=== PATIENT | male | born 1970 | race Caucasian/White ===

== ENCOUNTER 2019-08-29 10:32 | Inpatient (IN) | payer MEDICARE ==
[~2019-08-29] VITALS: Ht 182.4 cm; Wt 100.1 kg
[~2019-08-29 10:32] MED LIST: APIX5TAB PO; CARB400T PO
[2019-08-29 13:56] VITALS: BP 117/73
[2019-08-29] MEDS ORDERED: APIX5TAB PO (14:35)
[2019-08-29] MEDS ORDERED: CARB200T PO (14:35)
[2019-08-29] MEDS ORDERED: SODIUM CHLORIDE 0.9% 1,000 ML IV SCH (15:10)
[2019-08-29] MEDS ORDERED: hydrALAzine 20 MG/ML, 1ML IVPush PRN (15:30)
[2019-08-29] MEDS ORDERED: LABETALOL 5MG/ML, 20ML IVPush PRN (15:30)
[2019-08-29] MEDS ORDERED: PROMETHAZINE 25 MG/ML, 1ML IM PRN (15:30)
[2019-08-29] MEDS: METRONIDAZOLE PMX 500MG/100ML 100 ML IV SCH ×2 (16:42→22:30)
[2019-08-29 16:48] LABS: BASOPHILS # (AUTO) 0.06 x10^3/uL (0-0.1); BASOPHILS % (AUTO) 1 % (0-1); EOSINOPHILS % (AUTO) 0 % (1-7); LYMPHOCYTES # (AUTO) 1.59 x10^3/uL (1-3.4); LYMPHOCYTES % (AUTO) 20 % (22-44); MD NO; MEAN CORPUSCULAR HEMOGLOBIN 31.6 pg (27.5-34.5); MEAN CORPUSCULAR HGB CONC 33.1 g/dL (33.2-36.2); MEAN CORPUSCULAR VOLUME 95.3 fL (81-97); MEAN PLATELET VOLUME 7.8 fL (7.4-10.4); MONOCYTES # (AUTO) 0.51 x10^3/uL (0.2-0.8); MONOCYTES % (AUTO) 7 % (2-9); NEUTROPHILS # (AUTO) 5.75 x10^3/uL (1.8-6.8); NEUTROPHILS % (AUTO) 73 % (42-75); PLATELET COUNT 202 x10^3/uL (130-400); RED BLOOD COUNT 4.79 x10^6/uL (4.38-5.82); RED CELL DISTRIBUTION WIDTH 13.7 % (9.4-14.8)
[2019-08-29 16:57] LABS: INTERNATIONAL NORMALIZED RATIO 0.97 (0.93-1.1); PROTHROMBIN TIME 10.2 Seconds (9.6-11.5)
[2019-08-29 16:59] LABS: ALANINE AMINOTRANSFERASE 26 U/L (12-78); ALBUMIN 3.5 g/dL (3.4-5.0); ANION GAP 8 mmol/L (5-15); CHLORIDE 115 mmol/L (98-107)
[2019-08-29 17:02] LABS: ALKALINE PHOSPHATASE 170 U/L (45-117); BILIRUBIN,TOTAL 0.3 mg/dL (0.2-1.0); CREATININE 1.07 mg/dL (0.7-1.3); TOTAL PROTEIN 7.5 g/dL (6.4-8.2)
[2019-08-29] MEDS ORDERED: HEPARIN 25,000 UNITS/500ML PMX 500 ML ONE (17:15)
[2019-08-29] MEDS ORDERED: HEPARIN 5,000 UNITS/ML, 1ML ONE (17:15)
[2019-08-29] MEDS: HEPARIN 25,000 UNITS/500ML PMX 500 ML IV PRN (17:20)
[2019-08-29] MEDS: SODIUM CHLORIDE 0.45% 1,000 ML IV SCH (19:08)
[2019-08-29] MEDS: CEFTRIAXONE PMX 1GM/50ML 50 ML IV SCH (20:20)
[2019-08-29] MEDS: CARBAMAZEPINE 200 MG TABLET PO SCH (20:21)
[2019-08-29 20:52] VITALS: BP 112/69
[2019-08-29] MEDS ORDERED: HEPARIN 5,000 UNITS/ML, 1ML IV ONE (21:00)
[2019-08-29] MEDS ORDERED: HEPARIN 5,000 UNITS/ML, 1ML IV PRN (21:00)
[2019-08-30 02:46] VITALS: BP 105/66
[2019-08-30] MEDS: METRONIDAZOLE PMX 500MG/100ML 100 ML IV SCH ×4 (04:09→22:00)
[2019-08-30 05:48] LABS: BASOPHILS # (AUTO) 0.04 x10^3/uL (0-0.1); BASOPHILS % (AUTO) 1 % (0-1); EOSINOPHILS # (AUTO) 0.16 x10^3/uL (0-0.4); EOSINOPHILS % (AUTO) 3 % (1-7); LYMPHOCYTES # (AUTO) 2.64 x10^3/uL (1-3.4); LYMPHOCYTES % (AUTO) 43 % (22-44); MD NO; MEAN CORPUSCULAR HEMOGLOBIN 31.6 pg (27.5-34.5); MEAN CORPUSCULAR HGB CONC 33.3 g/dL (33.2-36.2); MEAN CORPUSCULAR VOLUME 95.2 fL (81-97); MEAN PLATELET VOLUME 7.5 fL (7.4-10.4); MONOCYTES # (AUTO) 0.41 x10^3/uL (0.2-0.8); MONOCYTES % (AUTO) 7 % (2-9); NEUTROPHILS # (AUTO) 2.95 x10^3/uL (1.8-6.8); NEUTROPHILS % (AUTO) 48 % (42-75); PLATELET COUNT 169 x10^3/uL (130-400); RED BLOOD COUNT 4.57 x10^6/uL (4.38-5.82); RED CELL DISTRIBUTION WIDTH 13.6 % (9.4-14.8)
[2019-08-30 05:58] LABS: ALANINE AMINOTRANSFERASE 22 U/L (12-78); ANION GAP 6 mmol/L (5-15); CALCIUM 8.6 mg/dL (8.5-10.1); CHLORIDE 115 mmol/L (98-107); CREATININE 0.88 mg/dL (0.7-1.3)
[2019-08-30 06:00] LABS: ALKALINE PHOSPHATASE 147 U/L (45-117); BILIRUBIN,TOTAL 0.4 mg/dL (0.2-1.0); TOTAL PROTEIN 6.6 g/dL (6.4-8.2)
[2019-08-30 07:46] VITALS: BP 103/70
[2019-08-30] MEDS: SODIUM CHLORIDE 0.45% 1,000 ML IV SCH (09:18)
[2019-08-30] MEDS: SODIUM CHLORIDE 0.9% 1,000 ML IV SCH (12:22)
[2019-08-30 12:29] VITALS: BP 120/83
[2019-08-30] MEDS ORDERED: VANCOMYCIN PMX 1GM/200ML 200 ML IVPB SCH (12:30)
[2019-08-30] MEDS: OXYcodone/APAP 5/325MG TABLET PO PRN (17:32)
[2019-08-30] MEDS ORDERED: POTASSIUM CHLORIDE 20 MEQ in SODIUM CHLORIDE 0.9% 250 ML IV ONE (18:00)
[2019-08-30] MEDS: HEPARIN 25,000 UNITS/500ML PMX 500 ML IV PRN (18:37)
[2019-08-30] MEDS: CEFTRIAXONE PMX 1GM/50ML 50 ML IV SCH (20:22)
[2019-08-30] MEDS: CARBAMAZEPINE 200 MG TABLET PO SCH (20:22)
[2019-08-30 20:29] VITALS: BP 108/65
[2019-08-31 03:00] VITALS: BP 111/71
[2019-08-31] MEDS: METRONIDAZOLE PMX 500MG/100ML 100 ML IV SCH ×4 (03:21→22:12)
[2019-08-31] MEDS: SODIUM CHLORIDE 0.9% 1,000 ML IV SCH ×2 (04:22→06:07)
[2019-08-31 05:21] LABS: BASOPHILS # (AUTO) 0.04 x10^3/uL (0-0.1); BASOPHILS % (AUTO) 1 % (0-1); EOSINOPHILS # (AUTO) 0.29 x10^3/uL (0-0.4); EOSINOPHILS % (AUTO) 5 % (1-7); LYMPHOCYTES # (AUTO) 2.03 x10^3/uL (1-3.4); LYMPHOCYTES % (AUTO) 37 % (22-44); MD NO; MEAN CORPUSCULAR HEMOGLOBIN 31.6 pg (27.5-34.5); MEAN CORPUSCULAR VOLUME 95.7 fL (81-97); MEAN PLATELET VOLUME 8.2 fL (7.4-10.4); MONOCYTES # (AUTO) 0.44 x10^3/uL (0.2-0.8); MONOCYTES % (AUTO) 8 % (2-9); NEUTROPHILS # (AUTO) 2.73 x10^3/uL (1.8-6.8); NEUTROPHILS % (AUTO) 49 % (42-75); PLATELET COUNT 187 x10^3/uL (130-400); RED BLOOD COUNT 4.97 x10^6/uL (4.38-5.82); RED CELL DISTRIBUTION WIDTH 13.8 % (9.4-14.8)
[2019-08-31 05:27] LABS: ANION GAP 5 mmol/L (5-15); CALCIUM 8.9 mg/dL (8.5-10.1); CHLORIDE 114 mmol/L (98-107)
[2019-08-31 05:32] LABS: ALBUMIN 3.2 g/dL (3.4-5.0); CREATININE 0.99 mg/dL (0.7-1.3)
[2019-08-31 08:07] VITALS: BP 127/86
[2019-08-31] MEDS: SODIUM CHLORIDE 0.45% 1,000 ML IV SCH ×2 (08:26→10:48)
[2019-08-31] MEDS ORDERED: MIDAZOLAM 1 MG/ML, 5ML ONE (08:37)
[2019-08-31] MEDS ORDERED: LIDOCAINE 2%, 20ML ONE (08:37)
[2019-08-31] MEDS ORDERED: VANCOMYCIN PMX 1GM/200ML 200 ML ONE (08:37)
[2019-08-31] MEDS ORDERED: VANCOMYCIN 500 MG ONE (08:37)
[2019-08-31] MEDS ORDERED: FENTANYL PF 100 MCG/2ML ONE (08:37)
[2019-08-31] MEDS ORDERED: VANCOMYCIN PMX 1GM/200ML 200 ML IV ONE (10:30)
[2019-08-31] MEDS ORDERED: HOLD MEDICATION MC PRN (10:30)
[2019-08-31] MEDS: OXYcodone/APAP 5/325MG TABLET PO PRN ×3 (11:32→21:11)
[2019-08-31 14:25] VITALS: BP 116/78
[2019-08-31 18:35] VITALS: BP 113/69
[2019-08-31] MEDS: CARBAMAZEPINE 200 MG TABLET PO SCH (21:00)
[2019-08-31] MEDS: CEFTRIAXONE PMX 1GM/50ML 50 ML IV SCH (21:00)
[2019-08-31] MEDS: SODIUM CHLORIDE FLUSH 10ML SYR IVF SCH (21:00)
[2019-08-31 21:37] VITALS: BP 130/99
[2019-08-31] MEDS: ONDANSETRON 2MG/ML, 2ML IVPush PRN (22:16)
[2019-09-01 02:59] VITALS: BP 133/82
[2019-09-01] MEDS: METRONIDAZOLE PMX 500MG/100ML 100 ML IV SCH ×4 (04:37→22:25)
[2019-09-01] MEDS: SODIUM CHLORIDE 0.45% 1,000 ML IV SCH (04:38)
[2019-09-01 05:27] LABS: ALBUMIN 3.2 g/dL (3.4-5.0); ANION GAP 4 mmol/L (5-15); CALCIUM 8.5 mg/dL (8.5-10.1); CHLORIDE 116 mmol/L (98-107); CREATININE 0.95 mg/dL (0.7-1.3)
[2019-09-01 06:42] VITALS: BP 132/82
[2019-09-01 07:37] LABS: BASOPHILS # (AUTO) 0.03 x10^3/uL (0-0.1); BASOPHILS % (AUTO) 1 % (0-1); EOSINOPHILS # (AUTO) 0.11 x10^3/uL (0-0.4); EOSINOPHILS % (AUTO) 2 % (1-7); LYMPHOCYTES # (AUTO) 1.34 x10^3/uL (1-3.4); LYMPHOCYTES % (AUTO) 23 % (22-44); MD NO; MEAN CORPUSCULAR HEMOGLOBIN 31.5 pg (27.5-34.5); MEAN CORPUSCULAR HGB CONC 33.2 g/dL (33.2-36.2); MEAN CORPUSCULAR VOLUME 94.8 fL (81-97); MEAN PLATELET VOLUME 7.6 fL (7.4-10.4); MONOCYTES # (AUTO) 0.35 x10^3/uL (0.2-0.8); MONOCYTES % (AUTO) 6 % (2-9); NEUTROPHILS # (AUTO) 4.05 x10^3/uL (1.8-6.8); NEUTROPHILS % (AUTO) 69 % (42-75); PLATELET COUNT 177 x10^3/uL (130-400); RED BLOOD COUNT 4.61 x10^6/uL (4.38-5.82); RED CELL DISTRIBUTION WIDTH 13.8 % (9.4-14.8)
[2019-09-01] MEDS: SODIUM CHLORIDE FLUSH 10ML SYR IVF SCH ×2 (09:00→21:42)
[2019-09-01 12:57] VITALS: BP 116/75
[2019-09-01 13:32] LABS: ALBUMIN 3.2 g/dL (3.4-5.0); BILIRUBIN, DIRECT 0.4 mg/dL (0.1-0.2)
[2019-09-01 13:34] LABS: BILIRUBIN,INDIRECT 0.4 mg/dL (0.0-2.0); BILIRUBIN,TOTAL 0.8 mg/dL (0.2-1.0); TOTAL PROTEIN 7.1 g/dL (6.4-8.2)
[2019-09-01 17:42] VITALS: BP 120/83
[2019-09-01] MEDS: CARVEDILOL 3.125 MG TABLET PO SCH (17:43)
[2019-09-01] MEDS ORDERED: BUPIVACAINE/PF 0.5% ONE (18:22)
[2019-09-01] MEDS ORDERED: EPINEPHRINE 1 MG/ML, 1ML ONE (18:22)
[2019-09-01] MEDS ORDERED: ROCURONIUM 10 MG/ML,10ML ONE (18:39)
[2019-09-01] MEDS ORDERED: FENTANYL PF 250 MCG/5ML ONE (18:39)
[2019-09-01] MEDS ORDERED: SUGAMMADEX 200 MG/2 ML IVPush ONE (19:28)
[2019-09-01] MEDS ORDERED: CEFAZOLIN 1,000 MG ONE (19:31)
[2019-09-01] MEDS ORDERED: SUCCINYLCHOLINE 20 MG/ML, 10ML ONE (19:31)
[2019-09-01] MEDS ORDERED: DEXAMETHASONE 4 MG/ML, 1ML ONE (19:31)
[2019-09-01] MEDS ORDERED: NEOSTIGMINE 1 MG/ML, 10ML ONE (19:31)
[2019-09-01] MEDS ORDERED: GLYCOPYRROLATE 0.2MG/1ML, 5ML ONE (19:31)
[2019-09-01] MEDS ORDERED: ONDANSETRON 2MG/ML, 2ML ONE (19:31)
[2019-09-01] MEDS ORDERED: PROPOFOL 10 MG/ML, 20ML ONE (19:31)
[2019-09-01] MEDS ORDERED: FENTANYL PF 100 MCG/2ML ONE (19:59)
[2019-09-01] MEDS ORDERED: ALBUTEROL SULFATE 2.5 MG/3 ML NPPB PRN (20:00)
[2019-09-01] MEDS ORDERED: LABETALOL 5MG/ML, 20ML IV PRN (20:00)
[2019-09-01] MEDS: FENTANYL PF 100 MCG/2ML IV PRN ×2 (20:00→21:00)
[2019-09-01] MEDS ORDERED: OXYcodone 5 MG/5 ML ORAL.SOL UDC PO PRN (20:00)
[2019-09-01] MEDS ORDERED: ACETAMINOPHEN 325 MG TABLET PO PRN (20:00)
[2019-09-01] MEDS ORDERED: hydrALAzine 20 MG/ML, 1ML IV PRN (20:00)
[2019-09-01] MEDS ORDERED: PROMETHAZINE 25 MG/ML, 1ML IV PRN (20:00)
[2019-09-01] MEDS ORDERED: KETOROLAC 30 MG/1 ML IV PRN (20:00)
[2019-09-01] MEDS ORDERED: MEPERIDINE/PF 25MG/0.5ML IVPush PRN (20:00)
[2019-09-01] MEDS ORDERED: DIAZEPAM 5 MG/ML, 2ML IVPush PRN (20:00)
[2019-09-01] MEDS ORDERED: HYDROmorphone 2 MG/ML, 1ML IVPush PRN (20:00)
[2019-09-01] MEDS ORDERED: OXYcodone 5 MG/5 ML ORAL.SOL UDC ONE (20:38)
[2019-09-01] MEDS ORDERED: ACETAMINOPHEN 650 MG/20.3 ML UDC ONE (20:39)
[2019-09-01] MEDS ORDERED: PROMETHAZINE 25 MG/ML, 1ML ONE (20:40)
[2019-09-01] MEDS: CARBAMAZEPINE 200 MG TABLET PO SCH (21:41)
[2019-09-01] MEDS: CEFTRIAXONE PMX 1GM/50ML 50 ML IV SCH (21:41)
[2019-09-01] MEDS: ONDANSETRON 2MG/ML, 2ML IVPush PRN (21:41)
[2019-09-01] MEDS: OXYcodone/APAP 5/325MG TABLET PO PRN (21:42)
[2019-09-01 21:45] VITALS: BP 133/78
[2019-09-02] MEDS: SODIUM CHLORIDE 0.45% 1,000 ML IV SCH ×2 (01:10→16:24)
[2019-09-02 01:43] VITALS: BP 133/82
[2019-09-02] MEDS: OXYcodone/APAP 5/325MG TABLET PO PRN ×4 (03:49→20:40)
[2019-09-02] MEDS: METRONIDAZOLE PMX 500MG/100ML 100 ML IV SCH ×4 (03:50→23:21)
[2019-09-02] MEDS ORDERED: HYDROmorphone 2 MG/ML, 1ML IV PRN (04:30)
[2019-09-02] MEDS ORDERED: ACETAMINOPHEN 325 MG TABLET PO PRN (04:30)
[2019-09-02] MEDS: CARVEDILOL 3.125 MG TABLET PO SCH ×2 (05:57→17:56)
[2019-09-02 08:37] VITALS: BP 127/80
[2019-09-02] MEDS: SODIUM CHLORIDE FLUSH 10ML SYR IVF SCH ×2 (09:18→20:49)
[2019-09-02] MEDS: LISINOPRIL 5 MG TABLET PO SCH (11:13)
[2019-09-02 12:40] VITALS: BP 112/72
[2019-09-02] MEDS: APIXABAN 5 MG TABLET PO SCH ×2 (12:53→20:39)
[2019-09-02 15:48] VITALS: BP 108/71
[2019-09-02 19:15] VITALS: BP 138/83
[2019-09-02] MEDS: CARBAMAZEPINE 200 MG TABLET PO SCH (20:40)
[2019-09-03] MEDS: OXYcodone/APAP 5/325MG TABLET PO PRN ×3 (01:15→15:30)
[2019-09-03] MEDS: SODIUM CHLORIDE 0.45% 1,000 ML IV SCH ×2 (02:36→17:34)
[2019-09-03 04:00] VITALS: BP 101/66
[2019-09-03 05:28] VITALS: BP 101/66
[2019-09-03 05:43] VITALS: BP 113/68
[2019-09-03] MEDS: CARVEDILOL 3.125 MG TABLET PO SCH ×2 (05:45→17:33)
[2019-09-03] MEDS: METRONIDAZOLE PMX 500MG/100ML 100 ML IV SCH ×4 (05:45→23:46)
[2019-09-03 07:38] VITALS: BP 110/68
[2019-09-03] MEDS ORDERED: LISI5TAB7 PO (09:24)
[2019-09-03] MEDS ORDERED: CARV3.1212 PO (09:24)
[2019-09-03 09:45] LABS: BASOPHILS # (AUTO) 0.02 x10^3/uL (0-0.1); BASOPHILS % (AUTO) 0 % (0-1); EOSINOPHILS # (AUTO) 0.19 x10^3/uL (0-0.4); EOSINOPHILS % (AUTO) 3 % (1-7); LYMPHOCYTES # (AUTO) 1.38 x10^3/uL (1-3.4); LYMPHOCYTES % (AUTO) 18 % (22-44); MD NO; MEAN CORPUSCULAR HEMOGLOBIN 31.6 pg (27.5-34.5); MEAN CORPUSCULAR HGB CONC 33.2 g/dL (33.2-36.2); MEAN CORPUSCULAR VOLUME 95.1 fL (81-97); MEAN PLATELET VOLUME 7.3 fL (7.4-10.4); MONOCYTES # (AUTO) 0.37 x10^3/uL (0.2-0.8); MONOCYTES % (AUTO) 5 % (2-9); NEUTROPHILS # (AUTO) 5.76 x10^3/uL (1.8-6.8); NEUTROPHILS % (AUTO) 75 % (42-75); PLATELET COUNT 173 x10^3/uL (130-400); RED BLOOD COUNT 5.02 x10^6/uL (4.38-5.82); RED CELL DISTRIBUTION WIDTH 13.5 % (9.4-14.8)
[2019-09-03 09:54] LABS: ALBUMIN 3.1 g/dL (3.4-5.0); ANION GAP 6 mmol/L (5-15); CALCIUM 8.8 mg/dL (8.5-10.1); CHLORIDE 111 mmol/L (98-107)
[2019-09-03 09:57] LABS: ALANINE AMINOTRANSFERASE 67 U/L (12-78); ALKALINE PHOSPHATASE 202 U/L (45-117); BILIRUBIN,TOTAL 1.5 mg/dL (0.2-1.0); CREATININE 0.92 mg/dL (0.7-1.3); TOTAL PROTEIN 7.2 g/dL (6.4-8.2)
[2019-09-03] MEDS: APIXABAN 5 MG TABLET PO SCH ×2 (10:24→20:21)
[2019-09-03] MEDS: SODIUM CHLORIDE FLUSH 10ML SYR IVF SCH ×2 (10:25→20:21)
[2019-09-03] MEDS: POLYETHYLENE GLYCOL 17 GM PACKET PO SCH (10:25)
[2019-09-03] MEDS: LISINOPRIL 5 MG TABLET PO SCH (10:25)
[2019-09-03] MEDS ORDERED: BISACODYL 10 MG SUPP PR ONE (11:00)
[2019-09-03 14:48] VITALS: BP 129/83
[2019-09-03] MEDS ORDERED: OXYC1TAB7 PO (16:27)
[2019-09-03 19:33] VITALS: BP 127/81
[2019-09-03] MEDS: CARBAMAZEPINE 200 MG TABLET PO SCH (20:21)
[2019-09-04 00:07] VITALS: BP 134/81
[2019-09-04] MEDS: POLYETHYLENE GLYCOL 17 GM PACKET PO SCH (01:41)
[2019-09-04] MEDS: METRONIDAZOLE PMX 500MG/100ML 100 ML IV SCH ×2 (05:52→08:46)
[2019-09-04] MEDS: CARVEDILOL 3.125 MG TABLET PO SCH ×2 (06:39→17:56)
[2019-09-04 07:13] VITALS: BP 119/74
[2019-09-04] MEDS: SODIUM CHLORIDE 0.45% 1,000 ML IV SCH (08:00)
[2019-09-04] MEDS ORDERED: DOCU-131 PO (08:22)
[2019-09-04] MEDS ORDERED: POLY17PO5 PO (08:22)
[2019-09-04] MEDS: APIXABAN 5 MG TABLET PO SCH ×2 (08:46→20:47)
[2019-09-04] MEDS: OXYcodone/APAP 5/325MG TABLET PO PRN ×4 (08:46→23:47)
[2019-09-04] MEDS: LISINOPRIL 5 MG TABLET PO SCH (08:46)
[2019-09-04] MEDS: SODIUM CHLORIDE FLUSH 10ML SYR IVF SCH ×2 (08:46→20:48)
[2019-09-04 10:38] LABS: BASOPHILS # (AUTO) 0.02 x10^3/uL (0-0.1); BASOPHILS % (AUTO) 0 % (0-1); EOSINOPHILS # (AUTO) 0.07 x10^3/uL (0-0.4); EOSINOPHILS % (AUTO) 1 % (1-7); LYMPHOCYTES # (AUTO) 1.01 x10^3/uL (1-3.4); LYMPHOCYTES % (AUTO) 12 % (22-44); MD NO; MEAN CORPUSCULAR HEMOGLOBIN 31.6 pg (27.5-34.5); MEAN CORPUSCULAR HGB CONC 33.5 g/dL (33.2-36.2); MEAN CORPUSCULAR VOLUME 94.2 fL (81-97); MEAN PLATELET VOLUME 7.5 fL (7.4-10.4); MONOCYTES # (AUTO) 0.59 x10^3/uL (0.2-0.8); MONOCYTES % (AUTO) 7 % (2-9); NEUTROPHILS # (AUTO) 6.57 x10^3/uL (1.8-6.8); NEUTROPHILS % (AUTO) 80 % (42-75); PLATELET COUNT 186 x10^3/uL (130-400); RED BLOOD COUNT 4.67 x10^6/uL (4.38-5.82)
[2019-09-04 10:50] LABS: ALANINE AMINOTRANSFERASE 57 U/L (12-78); ALBUMIN 2.9 g/dL (3.4-5.0); ANION GAP 6 mmol/L (5-15); BILIRUBIN, DIRECT 1.6 mg/dL (0.1-0.2); CALCIUM 8.7 mg/dL (8.5-10.1); CHLORIDE 112 mmol/L (98-107); CREATININE 0.78 mg/dL (0.7-1.3)
[2019-09-04 10:52] LABS: ALKALINE PHOSPHATASE 226 U/L (45-117); BILIRUBIN,TOTAL 2.5 mg/dL (0.2-1.0)
[2019-09-04 13:13] VITALS: BP 124/79
[2019-09-04 19:48] VITALS: BP 108/67
[2019-09-04] MEDS: CARBAMAZEPINE 200 MG TABLET PO SCH (20:47)
[2019-09-05 01:18] VITALS: BP 123/77
[2019-09-05 04:39] LABS: BASOPHILS # (AUTO) 0.04 x10^3/uL (0-0.1); BASOPHILS % (AUTO) 1 % (0-1); EOSINOPHILS # (AUTO) 0.14 x10^3/uL (0-0.4); EOSINOPHILS % (AUTO) 2 % (1-7); LYMPHOCYTES # (AUTO) 1.56 x10^3/uL (1-3.4); LYMPHOCYTES % (AUTO) 20 % (22-44); MD NO; MEAN CORPUSCULAR HEMOGLOBIN 31.6 pg (27.5-34.5); MEAN CORPUSCULAR VOLUME 95.7 fL (81-97); MEAN PLATELET VOLUME 7.7 fL (7.4-10.4); MONOCYTES % (AUTO) 9 % (2-9); NEUTROPHILS # (AUTO) 5.49 x10^3/uL (1.8-6.8); NEUTROPHILS % (AUTO) 69 % (42-75); PLATELET COUNT 184 x10^3/uL (130-400); RED BLOOD COUNT 4.66 x10^6/uL (4.38-5.82); RED CELL DISTRIBUTION WIDTH 13.9 % (9.4-14.8)
[2019-09-05 04:49] LABS: ALBUMIN 2.7 g/dL (3.4-5.0)
[2019-09-05 04:53] LABS: BILIRUBIN, DIRECT 0.9 mg/dL (0.1-0.2); BILIRUBIN,INDIRECT 0.7 mg/dL (0.0-2.0); BILIRUBIN,TOTAL 1.6 mg/dL (0.2-1.0)
[2019-09-05] MEDS: CARVEDILOL 3.125 MG TABLET PO SCH ×2 (06:28→17:46)
[2019-09-05 06:49] VITALS: BP 108/70
[2019-09-05] MEDS: SODIUM CHLORIDE FLUSH 10ML SYR IVF SCH ×2 (09:00→20:33)
[2019-09-05] MEDS: APIXABAN 5 MG TABLET PO SCH ×2 (12:09→20:32)
[2019-09-05] MEDS: LISINOPRIL 5 MG TABLET PO SCH (12:09)
[2019-09-05] MEDS: POLYETHYLENE GLYCOL 17 GM PACKET PO SCH (12:10)
[2019-09-05 12:44] VITALS: BP 122/77
[2019-09-05] MEDS: OXYcodone/APAP 5/325MG TABLET PO PRN ×3 (15:28→22:09)
[2019-09-05] MEDS ORDERED: POTASSIUM CHLORIDE 20 MEQ TAB.ER.PRT PO ONE (18:30)
[2019-09-05 19:37] VITALS: BP 119/71
[2019-09-05] MEDS: CARBAMAZEPINE 200 MG TABLET PO SCH (20:33)
[2019-09-06 01:22] VITALS: BP 116/73
[2019-09-06 04:40] LABS: BASOPHILS # (AUTO) 0.15 x10^3/uL (0-0.1); BASOPHILS % (AUTO) 2 % (0-1); EOSINOPHILS # (AUTO) 0.27 x10^3/uL (0-0.4); EOSINOPHILS % (AUTO) 4 % (1-7); LYMPHOCYTES # (AUTO) 1.87 x10^3/uL (1-3.4); LYMPHOCYTES % (AUTO) 26 % (22-44); MD NO; MEAN CORPUSCULAR HEMOGLOBIN 31.8 pg (27.5-34.5); MEAN CORPUSCULAR HGB CONC 33.2 g/dL (33.2-36.2); MEAN CORPUSCULAR VOLUME 95.9 fL (81-97); MEAN PLATELET VOLUME 7.6 fL (7.4-10.4); MONOCYTES # (AUTO) 0.59 x10^3/uL (0.2-0.8); MONOCYTES % (AUTO) 8 % (2-9); NEUTROPHILS # (AUTO) 4.35 x10^3/uL (1.8-6.8); NEUTROPHILS % (AUTO) 60 % (42-75); PLATELET COUNT 203 x10^3/uL (130-400); RED BLOOD COUNT 4.27 x10^6/uL (4.38-5.82)
[2019-09-06 04:49] LABS: BILIRUBIN, DIRECT 0.8 mg/dL (0.1-0.2)
[2019-09-06 04:52] LABS: BILIRUBIN,INDIRECT 0.4 mg/dL (0.0-2.0); BILIRUBIN,TOTAL 1.2 mg/dL (0.2-1.0)
[2019-09-06] MEDS: CARVEDILOL 3.125 MG TABLET PO SCH (06:26)
[2019-09-06 06:29] VITALS: BP 101/68
[2019-09-06 06:48] VITALS: BP 98/60
[2019-09-06] MEDS: LISINOPRIL 5 MG TABLET PO SCH (09:13)
[2019-09-06 09:15] VITALS: BP 104/67
[2019-09-06] MEDS: APIXABAN 5 MG TABLET PO SCH (09:15)
[2019-09-06] MEDS: OXYcodone/APAP 5/325MG TABLET PO PRN ×2 (09:16→12:37)
[2019-09-06] MEDS: SODIUM CHLORIDE FLUSH 10ML SYR IVF SCH (09:16)
[2019-09-06] MEDS: POLYETHYLENE GLYCOL 17 GM PACKET PO SCH (09:16)
== END 2019-09-06 12:04 | disposition home or self-care (01) | DRG 243 ==
LOC: 5SO 13:50 → DCLOUNGE 09-04 12:30 → 5SO 09-04 13:10 → DCLOUNGE 09-06 11:09
PROVIDERS: ADMIT Internal Medicine; ATTEND Internal Medicine Infectious Disease
PROC: 02H63JZ Insertion of Pacemaker Lead into Right Atrium, Percutaneous Approach (ICD-10-PCS; principal; 2019-08-31)
PROC: 02HK3JZ Insertion of Pacemaker Lead into Right Ventricle, Percutaneous Approach (ICD-10-PCS; 2019-08-31)
PROC: 0JH606Z Insertion of Pacemaker, Dual Chamber into Chest Subcutaneous Tissue and Fascia, Open Approach (ICD-10-PCS; 2019-08-31)
PROC: 0FT44ZZ Resection of Gallbladder, Percutaneous Endoscopic Approach (ICD-10-PCS; 2019-09-01)
DX: I44.2 Atrioventricular block, complete (principal); I42.9 Cardiomyopathy, unspecified; K80.01 Calculus of gallbladder with acute cholecystitis with obstruction; K82.8 Other specified diseases of gallbladder; G71.11 Myotonic muscular dystrophy; E87.6 Hypokalemia; E11.65 Type 2 diabetes mellitus with hyperglycemia; G40.909 Epilepsy, unspecified, not intractable, without status epilepticus; H54.61 Unqualified visual loss, right eye, normal vision left eye; J45.909 Unspecified asthma, uncomplicated; K21.9 Gastro-esophageal reflux disease without esophagitis; Z79.4 Long term (current) use of insulin; Z86.711 Personal history of pulmonary embolism; Z86.718 Personal history of other venous thrombosis and embolism; Z86.73 Personal history of transient ischemic attack (TIA), and cerebral infarction without residual deficits; Z87.891 Personal history of nicotine dependence; Z90.49 Acquired absence of other specified parts of digestive tract; Z88.0 Allergy status to penicillin; Z91.018 Allergy to other foods
CPT/HCPCS: 33208; 36415; 70450; 71045; 74181; 76705; 78226; 78227; 80053; 80069; 80076; 82247; 82248; 83690; 83735; 85025; 85520; 85610; 87040; 88304; 93005; 93306; 99156; 99157; C1779; C1785; C1892; G0378; J0171; J0690; J0696; J1100; J1170; J1644; J2250; J2405; J2550; J2704; J2710; J3010; J3370; J3480; A9537; C9898; J0330; J7030; J7050

== ENCOUNTER 2019-09-13 13:18 | Inpatient (IN) | payer MEDICARE ==
[~2019-09-13] VITALS: Ht 180.3 cm; Wt 94.2 kg
[~2019-09-13 13:18] MED LIST changes: +CARB200T PO; +CARV3.1212 PO; +DOCU-131 PO; +LISI5TAB7 PO; +OXYC1TAB7 PO; +POLY17PO5 PO
--- NOTE | 2019-09-13 13:33 | NUR ---
PATIENT BROUGHT BACK FROM TRIAGE WITH CHIEF COMPLAINT OF ABD PAIN STARTING AFTER CHOEL 08/31/19. PATIENT HAS EXPERIENCED INCREASING ABD PAIN AND SWELLING. RECENT CT SCAN DONE SHOWED POSSIBLE FLUID COLLECTION. THE PATIENT DENIES N/V, CP HOWEVER FEELS SOB WITH INCREASING FLUID IN ABDOMEN. THE PATIENT IS ALERT, ORIENTED, WARM AND DRY.
[2019-09-13 14:29] LABS: ALANINE AMINOTRANSFERASE 48 U/L (12-78); ALBUMIN 2.8 g/dL (3.4-5.0); ANION GAP 9 mmol/L (5-15); CALCIUM 9.3 mg/dL (8.5-10.1); CHLORIDE 109 mmol/L (98-107); CREATININE 0.93 mg/dL (0.7-1.3)
--- NOTE | 2019-09-13 14:29 | NUR ---
EDITH LAGOS AT BEDSIDE FOR UPDATE
[2019-09-13 14:32] LABS: ALKALINE PHOSPHATASE 831 U/L (45-117); BILIRUBIN,TOTAL 2.2 mg/dL (0.2-1.0); TOTAL PROTEIN 8.2 g/dL (6.4-8.2)
[2019-09-13 14:34] LABS: BASOPHILS # (AUTO) 0.03 x10^3/uL (0-0.1); BASOPHILS % (AUTO) 1 % (0-1); EOSINOPHILS # (AUTO) 0.21 x10^3/uL (0-0.4); EOSINOPHILS % (AUTO) 3 % (1-7); LYMPHOCYTES # (AUTO) 0.96 x10^3/uL (1-3.4); LYMPHOCYTES % (AUTO) 15 % (22-44); MD NO; MEAN CORPUSCULAR HEMOGLOBIN 31.4 pg (27.5-34.5); MEAN CORPUSCULAR HGB CONC 32.8 g/dL (33.2-36.2); MEAN CORPUSCULAR VOLUME 95.7 fL (81-97); MEAN PLATELET VOLUME 7.4 fL (7.4-10.4); MONOCYTES # (AUTO) 0.55 x10^3/uL (0.2-0.8); MONOCYTES % (AUTO) 9 % (2-9); NEUTROPHILS # (AUTO) 4.74 x10^3/uL (1.8-6.8); NEUTROPHILS % (AUTO) 73 % (42-75); PLATELET COUNT 392 x10^3/uL (130-400); RED BLOOD COUNT 4.48 x10^6/uL (4.38-5.82); RED CELL DISTRIBUTION WIDTH 13.6 % (9.4-14.8)
--- NOTE | 2019-09-13 15:00 | NUR ---
TASK RN: PT RESTING IN [facility], AWAKE/ALERT. NAD NOTED. PT REPORTS "SOME PAIN" DENIES NEED FOR PAIN MEDICATIONS. BP/SPO2 MONITOR IN PLACE. SPO2 >90% ON RA. RR WNL. AWAITING IR.
--- NOTE | 2019-09-13 15:00 | NUR ---
REPORT TO TASK FATMATA MCCLENDON
[2019-09-13] MEDS ORDERED: LIDOCAINE 1%, 10ML ONE (15:14)
[2019-09-13] MEDS ORDERED: FENTANYL PF 100 MCG/2ML ONE ×2 (15:23)
[2019-09-13] MEDS ORDERED: MIDAZOLAM 1 MG/ML, 5ML ONE ×2 (15:23→15:24)
[2019-09-13] MEDS ORDERED: FLUMAZENIL 0.1 MG/1 ML, 5ML ONE (15:24)
[2019-09-13] MEDS ORDERED: NALOXONE 1 MG/ML, 2ML ONE (15:24)
--- NOTE | 2019-09-13 15:38 | NUR ---
PT IN IR
--- NOTE | 2019-09-13 16:43 | NUR ---
PATIWNT BACK FROM IR- REPORT FROM NIURKA AVILEZ. PATIENT RECIEVED 3MG VERSED, 75 FENTANYL. 1200ML OF BILE FLUID WAS REMIVED AND A DRAIN TO GRAVITY WAS PLACED. DRESSING CDI. THE PATIENT IS RESTING, ALERT, ORIENTED, WARM AND DRY. CALL LIGHT IN REACH.
[2019-09-13] MEDS ORDERED: METRONIDAZOLE PMX 500MG/100ML 100 ML ONE (17:21)
[2019-09-13] MEDS ORDERED: HYDROmorphone 1 MG/ML, 1ML VIAL ONE (17:22)
[2019-09-13] MEDS ORDERED: CIPROFLOXACIN/PMX 400MG/200ML 200 ML ONE (17:22)
[2019-09-13] MEDS ORDERED: ONDANSETRON 2MG/ML, 2ML ONE (17:22)
[2019-09-13] MEDS: HYDROmorphone 1 MG/ML, 1ML VIAL IVPush PRN ×2 (17:27→18:18)
[2019-09-13] MEDS ORDERED: ONDANSETRON 2MG/ML, 2ML IVPush ONE (17:30)
[2019-09-13] MEDS ORDERED: CIPROFLOXACIN/PMX 400MG/200ML 100 ML IVPB ONE (17:30)
[2019-09-13] MEDS ORDERED: SODIUM CHLORIDE 0.9% 1,000ML IVBOLUS ONE (17:30)
[2019-09-13] MEDS ORDERED: SODIUM CHLORIDE FLUSH 10ML SYR IVF ONE (18:00)
--- NOTE | 2019-09-13 18:15 | NUR ---
[facility] AT BEDSIDE FOR EVALUATION
[2019-09-13] MEDS ORDERED: METRONIDAZOLE PMX 500MG/100ML 100 ML IVPB ONE (18:30)
--- NOTE | 2019-09-13 18:54 | NUR ---
REPORT TO RECIEVING RN
[2019-09-13] MEDS ORDERED: SODIUM CHLORIDE FLUSH 10ML SYR IVF PRN (19:00)
[2019-09-13] MEDS ORDERED: ONDANSETRON 2MG/ML, 2ML IVPush PRN (19:30)
[2019-09-13] MEDS ORDERED: ENALAPRILAT 1.25 MG/ML, 2ML IVPush PRN (19:30)
[2019-09-13] MEDS ORDERED: LIDODERM 5% PATCH TD PRN (19:30)
[2019-09-13] MEDS ORDERED: BISACODYL 10 MG SUPP PR PRN (19:30)
[2019-09-13 20:29] VITALS: BP 101/69
[2019-09-13] MEDS: CARBAMAZEPINE 200 MG TABLET PO SCH (21:44)
[2019-09-13] MEDS: HYDROmorphone 2 MG/ML, 1ML IVPush PRN (21:44)
[2019-09-14 00:36] VITALS: BP 107/72
[2019-09-14] MEDS: METRONIDAZOLE PMX 500MG/100ML 100 ML IV SCH ×4 (01:47→21:24)
[2019-09-14 05:18] LABS: BASOPHILS # (AUTO) 0.03 x10^3/uL (0-0.1); BASOPHILS % (AUTO) 1 % (0-1); EOSINOPHILS # (AUTO) 0.12 x10^3/uL (0-0.4); EOSINOPHILS % (AUTO) 2 % (1-7); LYMPHOCYTES # (AUTO) 0.91 x10^3/uL (1-3.4); LYMPHOCYTES % (AUTO) 15 % (22-44); MD NO; MEAN CORPUSCULAR HEMOGLOBIN 31.5 pg (27.5-34.5); MEAN CORPUSCULAR HGB CONC 32.6 g/dL (33.2-36.2); MEAN CORPUSCULAR VOLUME 96.6 fL (81-97); MEAN PLATELET VOLUME 7.4 fL (7.4-10.4); MONOCYTES # (AUTO) 0.78 x10^3/uL (0.2-0.8); MONOCYTES % (AUTO) 13 % (2-9); NEUTROPHILS # (AUTO) 4.39 x10^3/uL (1.8-6.8); NEUTROPHILS % (AUTO) 71 % (42-75); PLATELET COUNT 338 x10^3/uL (130-400); RED BLOOD COUNT 4.13 x10^6/uL (4.38-5.82); RED CELL DISTRIBUTION WIDTH 13.6 % (9.4-14.8)
[2019-09-14 05:29] LABS: ANION GAP 4 mmol/L (5-15); CALCIUM 9.3 mg/dL (8.5-10.1); CHLORIDE 111 mmol/L (98-107)
[2019-09-14 07:00] VITALS: BP 109/73
[2019-09-14] MEDS: HYDROmorphone 2 MG/ML, 1ML IVPush PRN ×4 (07:26→21:04)
[2019-09-14] MEDS: CIPROFLOXACIN/PMX 400MG/200ML 200 ML IV SCH ×2 (08:43→20:17)
[2019-09-14] MEDS: LISINOPRIL 5 MG TABLET PO SCH (09:00)
[2019-09-14] MEDS ORDERED: MIDAZOLAM 1 MG/ML, 2ML ONE (10:14)
[2019-09-14] MEDS ORDERED: FENTANYL PF 100 MCG/2ML ONE (10:15)
[2019-09-14 13:02] VITALS: BP 105/67
[2019-09-14 19:13] VITALS: BP 106/69
[2019-09-14] MEDS: CARBAMAZEPINE 200 MG TABLET PO SCH (21:01)
[2019-09-15 00:12] VITALS: BP 111/75
[2019-09-15] MEDS: HYDROmorphone 2 MG/ML, 1ML IVPush PRN ×4 (00:14→20:33)
[2019-09-15] MEDS: METRONIDAZOLE PMX 500MG/100ML 100 ML IV SCH ×3 (03:13→19:05)
[2019-09-15 05:26] LABS: BASOPHILS # (AUTO) 0.03 x10^3/uL (0-0.1); BASOPHILS % (AUTO) 1 % (0-1); EOSINOPHILS % (AUTO) 5 % (1-7); LYMPHOCYTES # (AUTO) 1.36 x10^3/uL (1-3.4); LYMPHOCYTES % (AUTO) 23 % (22-44); MD NO; MEAN CORPUSCULAR HEMOGLOBIN 31.5 pg (27.5-34.5); MEAN CORPUSCULAR HGB CONC 32.5 g/dL (33.2-36.2); MEAN PLATELET VOLUME 7.2 fL (7.4-10.4); MONOCYTES # (AUTO) 0.48 x10^3/uL (0.2-0.8); MONOCYTES % (AUTO) 8 % (2-9); NEUTROPHILS % (AUTO) 64 % (42-75); PLATELET COUNT 396 x10^3/uL (130-400); RED BLOOD COUNT 4.29 x10^6/uL (4.38-5.82); RED CELL DISTRIBUTION WIDTH 13.6 % (9.4-14.8)
[2019-09-15 05:39] LABS: ALBUMIN 2.7 g/dL (3.4-5.0); ANION GAP 8 mmol/L (5-15); CALCIUM 9.4 mg/dL (8.5-10.1); CHLORIDE 106 mmol/L (98-107)
[2019-09-15 05:55] LABS: ALANINE AMINOTRANSFERASE 86 U/L (12-78); ALKALINE PHOSPHATASE 974 U/L (45-117); BILIRUBIN,TOTAL 2.6 mg/dL (0.2-1.0); CREATININE 0.72 mg/dL (0.7-1.3); TOTAL PROTEIN 8.5 g/dL (6.4-8.2)
[2019-09-15 06:41] VITALS: BP 107/69
[2019-09-15] MEDS: CIPROFLOXACIN/PMX 400MG/200ML 200 ML IV SCH ×2 (07:30→20:32)
[2019-09-15] MEDS: LISINOPRIL 5 MG TABLET PO SCH (07:33)
[2019-09-15] MEDS ORDERED: MEPERIDINE/PF 25MG/ML,1ML IVPush PRN (09:30)
[2019-09-15] MEDS ORDERED: HYDROmorphone 2 MG/ML, 1ML IVPush PRN (09:30)
[2019-09-15] MEDS ORDERED: LABETALOL 5MG/ML, 20ML IV PRN (09:30)
[2019-09-15] MEDS ORDERED: OXYcodone 5 MG/5 ML ORAL.SOL UDC PO PRN (09:30)
[2019-09-15] MEDS ORDERED: PROMETHAZINE 25 MG/ML, 1ML IV PRN (09:30)
[2019-09-15] MEDS ORDERED: HALOPERIDOL 5 MG/ML IV PRN (09:30)
[2019-09-15] MEDS ORDERED: hydrALAzine 20 MG/ML, 1ML IV PRN (09:30)
[2019-09-15] MEDS ORDERED: FENTANYL PF 100 MCG/2ML IV PRN (09:30)
[2019-09-15] MEDS ORDERED: FENTANYL PF 250 MCG/5ML ONE (09:33)
[2019-09-15] MEDS ORDERED: OMNIPAQUE 350 MG/ML, 50 ML BOTTLE ONE (09:45)
[2019-09-15] MEDS ORDERED: DEXAMETHASONE 4 MG/ML, 1ML ONE (10:15)
[2019-09-15] MEDS ORDERED: CEFAZOLIN 1,000 MG ONE (10:15)
[2019-09-15] MEDS ORDERED: PROPOFOL 10 MG/ML, 20ML ONE (10:15)
[2019-09-15] MEDS ORDERED: SUCCINYLCHOLINE 20 MG/ML, 10ML ONE (10:15)
[2019-09-15] MEDS ORDERED: NEOSTIGMINE 1 MG/ML, 10ML ONE (10:15)
[2019-09-15] MEDS ORDERED: GLYCOPYRROLATE 0.2MG/1ML, 5ML ONE (10:15)
[2019-09-15] MEDS ORDERED: ROCURONIUM 10MG/ML,5ML ONE (10:15)
[2019-09-15] MEDS ORDERED: ONDANSETRON 2MG/ML, 2ML ONE (10:15)
[2019-09-15] MEDS ORDERED: INDOMETHACIN 50 MG SUPP.RECT PR ONE (10:30)
[2019-09-15] MEDS ORDERED: INDOMETHACIN 50 MG SUPP.RECT ONE (10:39)
[2019-09-15 11:15] VITALS: BP 116/73
[2019-09-15] MEDS ORDERED: SUGAMMADEX 200 MG/2 ML IVPush ONE (11:25)
[2019-09-15 13:00] VITALS: BP 121/76
[2019-09-15 19:37] VITALS: BP 105/76
[2019-09-15] MEDS: CARBAMAZEPINE 200 MG TABLET PO SCH (20:32)
[2019-09-16 00:30] VITALS: BP 110/70
[2019-09-16] MEDS: TEMAZEPAM 15 MG CAPSULE PO PRN ×2 (01:30→20:30)
[2019-09-16] MEDS: HYDROmorphone 2 MG/ML, 1ML IVPush PRN ×3 (01:31→23:07)
[2019-09-16] MEDS: METRONIDAZOLE PMX 500MG/100ML 100 ML IV SCH (03:05)
[2019-09-16 04:49] LABS: ALBUMIN 2.1 g/dL (3.4-5.0); ANION GAP 4 mmol/L (5-15); CALCIUM 8.8 mg/dL (8.5-10.1); CHLORIDE 112 mmol/L (98-107)
[2019-09-16 04:53] LABS: ALANINE AMINOTRANSFERASE 56 U/L (12-78); ALKALINE PHOSPHATASE 778 U/L (45-117); BILIRUBIN,TOTAL 1.3 mg/dL (0.2-1.0); CREATININE 0.73 mg/dL (0.7-1.3); TOTAL PROTEIN 7.2 g/dL (6.4-8.2)
[2019-09-16 05:24] LABS: BASOPHILS # (AUTO) 0.02 x10^3/uL (0-0.1); BASOPHILS % (AUTO) 1 % (0-1); EOSINOPHILS # (AUTO) 0.14 x10^3/uL (0-0.4); EOSINOPHILS % (AUTO) 3 % (1-7); LYMPHOCYTES # (AUTO) 1.28 x10^3/uL (1-3.4); LYMPHOCYTES % (AUTO) 26 % (22-44); MD NO; MEAN CORPUSCULAR HEMOGLOBIN 31.6 pg (27.5-34.5); MEAN CORPUSCULAR HGB CONC 32.9 g/dL (33.2-36.2); MONOCYTES # (AUTO) 0.43 x10^3/uL (0.2-0.8); MONOCYTES % (AUTO) 9 % (2-9); NEUTROPHILS # (AUTO) 3.01 x10^3/uL (1.8-6.8); NEUTROPHILS % (AUTO) 62 % (42-75); PLATELET COUNT 388 x10^3/uL (130-400); RED BLOOD COUNT 3.67 x10^6/uL (4.38-5.82); RED CELL DISTRIBUTION WIDTH 12.9 % (9.4-14.8)
[2019-09-16 07:27] VITALS: BP 114/74
[2019-09-16] MEDS: CIPROFLOXACIN/PMX 400MG/200ML 200 ML IV SCH (07:27)
[2019-09-16] MEDS: LISINOPRIL 5 MG TABLET PO SCH (08:02)
[2019-09-16] MEDS: metroNIDAZOLE 500 MG TABLET PO SCH ×3 (11:56→20:30)
[2019-09-16 14:00] VITALS: BP 106/69
[2019-09-16] MEDS ORDERED: metroNIDAZOLE 500 MG TABLET PO SCH (16:00)
[2019-09-16 19:27] VITALS: BP 99/67
[2019-09-16] MEDS: CARBAMAZEPINE 200 MG TABLET PO SCH (20:30)
[2019-09-16] MEDS: CIPROFLOXACIN 500 MG TABLET PO SCH (20:31)
[2019-09-17] MEDS: HYDROmorphone 2 MG/ML, 1ML IVPush PRN ×4 (02:12→13:38)
[2019-09-17 02:40] VITALS: BP 109/70
[2019-09-17 05:34] LABS: BASOPHILS # (AUTO) 0.03 x10^3/uL (0-0.1); BASOPHILS % (AUTO) 1 % (0-1); EOSINOPHILS # (AUTO) 0.26 x10^3/uL (0-0.4); EOSINOPHILS % (AUTO) 6 % (1-7); LYMPHOCYTES # (AUTO) 1.63 x10^3/uL (1-3.4); LYMPHOCYTES % (AUTO) 37 % (22-44); MD NO; MEAN CORPUSCULAR HEMOGLOBIN 31.7 pg (27.5-34.5); MEAN CORPUSCULAR HGB CONC 32.9 g/dL (33.2-36.2); MEAN CORPUSCULAR VOLUME 96.3 fL (81-97); MEAN PLATELET VOLUME 6.7 fL (7.4-10.4); MONOCYTES # (AUTO) 0.37 x10^3/uL (0.2-0.8); MONOCYTES % (AUTO) 8 % (2-9); NEUTROPHILS # (AUTO) 2.12 x10^3/uL (1.8-6.8); NEUTROPHILS % (AUTO) 48 % (42-75); PLATELET COUNT 392 x10^3/uL (130-400); RED BLOOD COUNT 3.88 x10^6/uL (4.38-5.82); RED CELL DISTRIBUTION WIDTH 13.7 % (9.4-14.8)
[2019-09-17 05:43] LABS: ALBUMIN 2.2 g/dL (3.4-5.0); ANION GAP 4 mmol/L (5-15); CALCIUM 8.8 mg/dL (8.5-10.1); CHLORIDE 114 mmol/L (98-107)
[2019-09-17 05:48] LABS: ALANINE AMINOTRANSFERASE 44 U/L (12-78); ALKALINE PHOSPHATASE 668 U/L (45-117); CREATININE 0.71 mg/dL (0.7-1.3); TOTAL PROTEIN 7.1 g/dL (6.4-8.2)
[2019-09-17 07:43] VITALS: BP 109/70
[2019-09-17] MEDS: metroNIDAZOLE 500 MG TABLET PO SCH (08:49)
[2019-09-17] MEDS: CIPROFLOXACIN 500 MG TABLET PO SCH (08:50)
[2019-09-17] MEDS: LISINOPRIL 5 MG TABLET PO SCH (08:50)
[2019-09-17] MEDS ORDERED: OXYC5TAB3 PO (13:12)
[2019-09-17] MEDS ORDERED: METR500T PO (13:12)
[2019-09-17] MEDS ORDERED: CIPR500T87 PO (13:12)
[2019-09-17 13:37] VITALS: BP 102/69
== END 2019-09-17 16:00 | disposition home or self-care (01) | DRG 393 ==
LOC: ED 16:55 → EDIP 19:15 → 4NE 19:58 → DCLOUNGE 09-17 15:40
PROVIDERS: ADMIT Family Medicine; ATTEND Internal Medicine
PROC: BF131ZZ Fluoroscopy of Gallbladder and Bile Ducts using Low Osmolar Contrast (ICD-10-PCS; 2019-09-15)
PROC: 0F998ZZ Drainage of Common Bile Duct, Via Natural or Artificial Opening Endoscopic (ICD-10-PCS; 2019-09-15)
PROC: 0F798DZ Dilation of Common Bile Duct with Intraluminal Device, Via Natural or Artificial Opening Endoscopic (ICD-10-PCS; principal; 2019-09-15 07:30)
DX: K91.89 Other postprocedural complications and disorders of digestive system (principal); J96.00 Acute respiratory failure, unspecified whether with hypoxia or hypercapnia; J96.01 Acute respiratory failure with hypoxia; R18.8 Other ascites; K80.50 Calculus of bile duct without cholangitis or cholecystitis without obstruction; H54.61 Unqualified visual loss, right eye, normal vision left eye; K76.0 Fatty (change of) liver, not elsewhere classified; R79.1 Abnormal coagulation profile; T50.905A Adverse effect of unspecified drugs, medicaments and biological substances, initial encounter; Y83.8 Other surgical procedures as the cause of abnormal reaction of the patient, or of later complication, without mention of misadventure at the time of the procedure; Y92.89 Other specified places as the place of occurrence of the external cause; Z79.01 Long term (current) use of anticoagulants; Z86.711 Personal history of pulmonary embolism; Z86.718 Personal history of other venous thrombosis and embolism; Z86.73 Personal history of transient ischemic attack (TIA), and cerebral infarction without residual deficits; Z95.810 Presence of automatic (implantable) cardiac defibrillator; Z95.828 Presence of other vascular implants and grafts; Z88.0 Allergy status to penicillin; Z88.8 Allergy status to other drugs, medicaments and biological substances; Z91.018 Allergy to other foods
CPT/HCPCS: 36415; 49405; 71045; 74328; 77002; 80048; 80053; 83690; 83735; 84100; 85025; 87070; 87186; 87205; 96365; 96367; 96375; 96376; 99156; 99157; 99291; G0378; J0690; J0744; J1100; J1170; J2250; J2405; J2704; J2710; J3010; Q9967; C1729; C1769; C1894; C2625; J0330; J2310

== ENCOUNTER 2019-11-04 05:13 | Day surgery (SDC) | payer MEDICARE ==
[~2019-11-04] VITALS: Ht 182.9 cm; Wt 92.6 kg
[~2019-11-04 05:13] MED LIST changes: +CIPR500T87 PO; +METR500T PO; +OXYC5TAB3 PO
[2019-11-04 06:55] VITALS: BP 105/73
[2019-11-04] MEDS ORDERED: LACTATED RINGERS 1,000 ML IV SCH (07:08)
[2019-11-04] MEDS ORDERED: MIDAZOLAM 1 MG/ML, 2ML ONE (07:34)
[2019-11-04] MEDS ORDERED: FENTANYL PF 250 MCG/5ML ONE (07:34)
[2019-11-04] MEDS ORDERED: SUGAMMADEX 200 MG/2 ML IVPush ONE (08:04)
[2019-11-04] MEDS ORDERED: ONDANSETRON 2MG/ML, 2ML ONE (08:05)
[2019-11-04] MEDS ORDERED: PROPOFOL 10 MG/ML, 20ML ONE (08:05)
[2019-11-04] MEDS ORDERED: PHENYLEPHRINE 10 MG/ML ONE (08:05)
[2019-11-04] MEDS ORDERED: ROCURONIUM 10MG/ML,5ML ONE (08:05)
[2019-11-04] MEDS ORDERED: OMNIPAQUE 350 MG/ML, 50 ML BOTTLE ONE (08:11)
[2019-11-04] MEDS ORDERED: hydrALAzine 20 MG/ML, 1ML IV PRN (09:00)
[2019-11-04] MEDS ORDERED: OXYcodone 5 MG/5 ML ORAL.SOL UDC PO PRN (09:00)
[2019-11-04] MEDS ORDERED: FENTANYL PF 100 MCG/2ML IV PRN (09:00)
[2019-11-04] MEDS ORDERED: HALOPERIDOL 5 MG/ML IV PRN (09:00)
[2019-11-04] MEDS ORDERED: HYDROmorphone 2 MG/ML, 1ML IVPush PRN (09:00)
[2019-11-04] MEDS ORDERED: MEPERIDINE/PF 25MG/ML,1ML IVPush PRN (09:00)
[2019-11-04] MEDS ORDERED: ACETAMINOPHEN 325 MG TABLET PO PRN (09:00)
== END 2019-11-04 10:15 | disposition home or self-care (01) ==
LOC: OUT 05:13
PROVIDERS: ATTEND Internal Medicine Geriatric Medicine
DX: K91.89 Other postprocedural complications and disorders of digestive system (principal); K80.50 Calculus of bile duct without cholangitis or cholecystitis without obstruction; Z79.01 Long term (current) use of anticoagulants; Z79.899 Other long term (current) drug therapy; Z86.718 Personal history of other venous thrombosis and embolism; Z86.711 Personal history of pulmonary embolism; Z88.0 Allergy status to penicillin; Z88.7 Allergy status to serum and vaccine; Z95.0 Presence of cardiac pacemaker
CPT/HCPCS: 43264; 43275; 74328; 93005; C1769; J2250; J2370; J2405; J2704; J3010; J7120; Q9967

== ENCOUNTER → 2020-03-04 | Outpatient (CLI) | payer MEDICARE ==
[~2020-03-04] MED LIST changes: +REGADENOSON 0.4 MG/5 ML SYRINGE ONE
== END | disposition home or self-care (01) ==
LOC: CFH 06:49
PROVIDERS: ATTEND Physician Assistant Medical
DX: I08.1 Rheumatic disorders of both mitral and tricuspid valves (principal); I21.19 ST elevation (STEMI) myocardial infarction involving other coronary artery of inferior wall; R29.898 Other symptoms and signs involving the musculoskeletal system
CPT/HCPCS: 78452; 93017; 93306; A9502; J2785